=== PATIENT | female | born 1950 | race Caucasian/White ===

== ENCOUNTER → 2024-02-07 | Outpatient (CLI) | payer MEDICARE ==
--- NOTE | 2024-02-07 15:32 | BD ---
EXAMINATION TYPE: Axial Bone Density DATE OF EXAM: 02/07/2024 CLINICAL HISTORY: 74 years old Female. ICD-10 CODE: M85.80 OTHR SPECIFIED DISORDERS OF BONE DENSITY Height: 5 ft Weight: 167 FRAX RISK QUESTIONS: Alcohol (3 or more units per day): no Family History (Parent hip fracture): no Glucocorticoids (More than 3mos): no (Ex: prednisone, prednisolone, methylprednisolone, dexamethasone, and hydrocortisone). History of Fracture in Adulthood: yes Secondary Osteoporosis: 1. Type 1 Diabetes: no 2. Hyperthyroidism: no 3. Menopause before 45: no 4. Malnutrition: no 5. Chronic liver disease: no Rheumatoid Arthritis: no Current Tobacco Use: no RISK FACTORS HISTORY OF: Surgery to Spine/Hip(right/left)/Wrist (right/left): no MEDICATIONS: Thyroid Medications: yes Which medication: levothyroxine How Long: approx 10 years Osteoporosis Medications: no EXAM MEASUREMENTS: Bone mineral densitometry was performed using the [email or web address] System. Bone mineral density as measured about the Lumbar spine is: ----- L1-L4(G/cm2): 1.475 T Score Values are as follows: ----- L1: 0.6 ----- L2: -0.2 ----- L3: 3.8 ----- L4: 4.2 ----- L1-L4: 2.5 Z Score Values are as follows: ----- L1: 2.0 ----- L2: 1.2 ----- L3: 5.2 ----- L4: 5.6 ----- L1-L4: 3.9 prev done elsewhere Bone mineral density about the R hip (g/cm2): 0.948 Bone mineral density about the L hip (g/cm2): 0.877 T Score values are as follows: -----R Neck: -0.6 -----L Neck: -1.2 -----R Total: -0.2 -----L Total: 0.1 Z Score values are as follows: -----R Neck: 1.1 -----L Neck: 0.6 -----R Total: 1.3 -----L Total: 1.6 prev done elsewhere FRAX%s: The graph provided illustrates a 15.3 % chance for a major osteoporotic fx and a 2.4 % chance for the hips probability for fx in 10 years time. IMPRESSION: Osteopenia (T Score between -2.5 and -1). There is slightly increased risk of fracture and the patient may be considered for treatment. Re-Screen 2-5 years. NOTE: T-SCORE=SD OF THE YOUNG ADULT MEAN.
== END | disposition home or self-care (01) ==
LOC: RADBDWWP 08:48
PROVIDERS: ATTEND Family Medicine
DX: M85.852 Other specified disorders of bone density and structure, left thigh (principal); Z78.0 Asymptomatic menopausal state
CPT/HCPCS: 77080

== ENCOUNTER → 2024-03-30 | Outpatient (CLI) | payer MEDICARE ==
--- NOTE | 2024-04-12 11:36 | MM ---
Reason for Exam: Screening (asymptomatic). Last screening mammogram was performed 12 month(s) ago. Patient History: Menarche at age 11. First Full-Term at age 19. Left ovary removed at age 25. Right ovary removed at age 25. Hysterectomy at age 25. Risk Values: Hilda 5 year model risk: 1.6%. NCI Lifetime model risk: 3.2%. Prior Study Comparison: 01/25/2022 Bilateral Screening Mammogram, [facility]. 03/14/2023 Bilateral Screening Mammogram, [facility]. Tissue Density: There are scattered areas of fibroglandular density. Findings: Analyzed By CAD. Right breast: There is no suspicious group of microcalcifications or new suspicious mass. Left breast: There is no suspicious group of microcalcifications or new suspicious mass. Overall Assessment: Negative, BI-RAD 1 Management: Screening Mammogram of both breasts in [address] [facility] will attempt to contact patient to return for supplemental views and ultrasound if indicated. Patient should continue monthly self-breast exams. A clinical breast exam by your physician is recommended on an annual basis. This exam should not preclude additional follow-up of suspicious palpable abnormalities. Note on Hilda scores and lifetime risk: 1. A Hilda score greater than 3% is considered moderate risk. If this is the case, consider specialist referral to assess eligibility for a risk reducing agent. 2. If overall lifetime risk for the development of breast cancer is 20% or higher, the patient may qualify for future screening with alternating mammogram and breast MRI. Electronically signed and approved by: Vish Angel DO
== END | disposition home or self-care (01) ==
LOC: RADMAMWWP 13:13
PROVIDERS: ATTEND Family Medicine
DX: Z12.31 Encounter for screening mammogram for malignant neoplasm of breast
CPT/HCPCS: 77063; 77067